=== PATIENT | female | born 1940 | race Caucasian/White ===

== ENCOUNTER 2024-01-29 15:38 | Outpatient (RCR) | payer MEDICARE, BC, SELFPAY | END 2024-03-23 17:43 | disposition home or self-care (01) | PROVIDERS: PCP Family Medicine; Visit Provider Family Medicine | DX: H81.12 Benign paroxysmal vertigo, left ear (principal); M54.2 Cervicalgia; M25.60 Stiffness of unspecified joint, not elsewhere classified; Z51.89 Encounter for other specified aftercare | CPT/HCPCS: 95992; 97161 ==